=== PATIENT | female | born 1995 | race Caucasian/White ===

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

== ENCOUNTER 2017-09-15 19:08 | Outpatient (CLI) | END 2017-09-15 21:41 | disposition home or self-care (01) ==

== ENCOUNTER 2017-09-28 19:05 | Inpatient (IN) | END 2017-10-01 14:50 | disposition home or self-care (01) | DRG 775 ==